=== PATIENT | female | born 2000 | race Caucasian/White ===

== ENCOUNTER → 2022-04-16 | Outpatient (CLI) | payer OTHER, SELFPAY ==
--- NOTE | 2022-04-16 07:49 | US_ITS ---
INDICATION: UTI- RECURRENT EXAMINATION: Ultrasound US Kidney(s) complete (eg, kidneys and bladder) TECHNIQUE: Huntley scale and color doppler images were obtained of the kidneys. COMPARISON: None. FINDINGS: RIGHT KIDNEY: 9.4 x 5.4 x 3.9cm. There is no hydronephrosis. No shadowing calculus, focal lesion or perinephric collection is demonstrated. LEFT KIDNEY: 9.9 x 5.8 x 4.8 cm. There is no hydronephrosis. No shadowing calculus, focal lesion or perinephric collection is demonstrated. URINARY BLADDER: Anechoic 9.3 x 9.3 x 7.7 cm (365 ml). Right ureteral jet is demonstrated. Nonspecific nonvisualization of the left ureteral jet. US/Kidney and Bladder IMPRESSION: No evidence of obstructive uropathy. No acute renal finding. Nonspecific nonvisualization of the left ureteral jet. Prevoid volume 365 mL. No postvoid imaging is submitted Electronically Signed: Joaquin Clay MD at 4:05 EDT ,
== END | disposition home or self-care (01) ==
LOC: US 07:45
PROVIDERS: Referring Provider Urology; Visit Provider Urology
DX: N39.0 Urinary tract infection, site not specified (principal)
CPT/HCPCS: 76770